=== PATIENT | female | born 1995 | race American Indian/Alaskan Native ===

== ENCOUNTER 2019-05-14 01:48 | Emergency (ER) | payer MEDICAID, OTHER ==
[2019-05-14 02:04] VITALS: BP 135/95; PULSE 98
--- NOTE | 2019-05-14 02:24 | EDM.PDOC ---
ED HPI GENERAL MEDICAL PROBLEM - General Chief Complaint: Chest Pain Stated Complaint: CHEST PAIN, VOMITTING Time Seen by Provider: 05/14/19 02:00 Source of Information: Reports: Patient History Limitations: Reports: No Limitations - History of Present Illness INITIAL COMMENTS - FREE TEXT/NARRATIVE: ED with c/o chest pain, has no cough or fever. Pain worse with movement and deep breathing. Chest Pain Score (Numeric/FACES): 7 - Related Data Allergies Allergy/AdvReac Type Severity Reaction Status Date / Time No Known Allergies Allergy Verified 05/14/19 01:57 Home Meds: Home Meds Acetaminophen [Tylenol Extra Strength] 500 mg PO Q6H PRN 08/29/13 [History] Docusate Sodium [Colace] 100 mg PO DAILY 08/29/13 [History] Past Medical History - Past Health History Medical/Surgical History: Denies Medical/Surgical History - Past Surgical History Female Surgical History: Reports: Other (See Below) Other Female Surgeries/Procedures: kidney surgery as infant Social & Family History - Tobacco Use Smoking Status *Q: Never Smoker Second Hand Smoke Exposure: No - Caffeine Use Caffeine Use: Reports: None - Recreational Drug Use Recreational Drug Use: No ED ROS GENERAL - Review of Systems Review Of Systems: Comprehensive ROS is negative, except as noted in HPI. ED EXAM, GENERAL - Physical Exam Exam: See Below Exam Limited By: No Limitations General Appearance: Alert, Anxious Eye Exam: Bilateral Eye: PERRL Nose: Normal Inspection Throat/Mouth: Normal Inspection Head: Atraumatic, Normocephalic Neck: Normal Inspection, Full Range of Motion Respiratory/Chest: No Respiratory Distress, Lungs Clear, Normal Breath Sounds. No: Chest Non-Tender (left anterior later) Cardiovascular: Normal Peripheral Pulses, Regular Rate, Rhythm GI/Abdominal: Normal Bowel Sounds Neurological: Alert, Oriented Psychiatric: Anxious Skin Exam: Warm, Dry, Intact, Normal Color Course - Vital Signs Last Recorded V/S: Last Vital Signs Temp 97.4 F 05/14/19 01:58 Pulse 98 05/14/19 01:58 Resp 16 05/14/19 01:58 BP 135/95 H 05/14/19 01:58 Pulse Ox 100 05/14/19 01:58 - Orders/Labs/Meds Labs: Laboratory Tests 05/14/19 05/14/19 05/14/19 Range/Units 01:56 01:56 01:56 WBC 8.0 (5.0-10.0) 10^3/uL RBC 4.85 (4.2-5.4) 10^6/uL Hgb 10.3 L D (12.0-16.0) g/dL Hct 33.5 L (37.0-47.0) % MCV 69.1 L D (80-100) fL MCH 21.2 L (27.0-34.0) pg MCHC 30.7 L (33.0-35.0) g/dL Plt Count 387 D (150-450) 10^3/uL Neut % (Auto) 43.6 (42.2-75.2) % Lymph % (Auto) 43.3 (20.5-50.1) % Hale % (Auto) 10.5 H (2-8) % Eos % (Auto) 2.2 (1.0-3.0) % Baso % (Auto) 0.4 (0.0-1.0) % D-Dimer, Quantitative < 100 (0-400) ng/mL Sodium 141 (136-145) mmol/L Potassium 3.3 L (3.5-5.1) mmol/L Chloride 101 (98-107) mmol/L Carbon Dioxide 30 (21-32) mmol/L Anion Gap 13.3 H (7-13) mEq/L BUN 8 (7-18) mg/dL Creatinine 0.51 L (0.55-1.02) mg/dL Est Cr Clr Drug Dosing 153.06 mL/min Estimated GFR (MDRD) > 60 BUN/Creatinine Ratio 15.7 (No establ ref range) Glucose 77 (74-99) mg/dL Calcium 8.5 (8.5-10.1) mg/dL Total Bilirubin 0.3 (0.2-1.0) mg/dL AST 13 L (15-37) U/L ALT 20 (14-59) U/L Alkaline Phosphatase 53 (46-116) U/L Total Protein 7.7 (6.4-8.2) g/dL Albumin 4.2 (3.4-5.0) g/dL Globulin 3.5 Albumin/Globulin Ratio 1.2 Amylase 54 (25-115) U/L Lipase 172 (73-393) U/L Meds: Medications Discontinued Medications Generic Name Dose Route Start Last Admin Trade Name Xander PRN Reason Stop Dose Admin Famotidine 20 mg 05/14/19 02:35 05/14/19 02:43 Pepcid IVPUSH 05/14/19 02:36 20 mg ONETIME ONE Administration Ibuprofen 600 mg 05/14/19 02:35 05/14/19 02:43 Motrin PO 05/14/19 02:36 600 mg ONETIME ONE Administration Departure - Departure Time of Disposition: 02:36 Disposition: Home, Self-Care 01 Condition: Good Clinical Impression: Costochondral chest pain - Discharge Information *PRESCRIPTION DRUG MONITORING PROGRAM REVIEWED*: No *COPY OF PRESCRIPTION DRUG MONITORING REPORT IN PATIENT ELSI: No Instructions: Costochondritis, [id number] Forms: ED Department Discharge Additional Instructions: bland diet tylenol or ibuprofen alternate every 4 hours for discomfort warm pack to chest clinic this week if symptoms worsen Sepsis Event Note - Evaluation Sepsis Screening Result: No Definite Risk - Focused Exam Date Exam was Performed: 05/16/19 Time Exam was Performed: 08:48
[2019-05-14 02:25] LABS: ANION GAP 13.3 mEq/L (7-13); CHLORIDE,CL 101 mmol/L (98-107); SODIUM,NA 141 mmol/L (136-145)
[2019-05-14] MEDS: Ibuprofen 600 MG Tab PO ONE (02:43)
[2019-05-14] MEDS: Famotidine 20 MG/2 ML SDV IVPUSH ONE (02:43)
== END 2019-05-14 02:47 | disposition home or self-care (01) ==
LOC: DL.ED 01:48
DX: R07.1 Chest pain on breathing (principal)
CPT/HCPCS: 36415; 80053; 82150; 83690; 85025; 85379; 87804; 93005; 96374; 99285; A9270; J3490; 99283

== ENCOUNTER 2020-10-09 01:12 | Emergency (ER) | payer OTHER ==
[2020-10-09 01:30] VITALS: BP 111/93; PULSE 85
--- NOTE | 2020-10-09 01:48 | EDM.PDOC ---
ED HPI GENERAL MEDICAL PROBLEM - General Stated Complaint: CONGESTION, TROUBLE BREATHING THRU NOSE, RESTLESS Time Seen by Provider: 10/09/20 01:40 Source of Information: Reports: Patient History Limitations: Reports: No Limitations - History of Present Illness INITIAL COMMENTS - FREE TEXT/NARRATIVE: This 25 yo female patient reports to the ED with nasal congestion and sinus congestion that started on Tuesday. The patient reports she started to have a sore throat yesterday. The patient was seen by Dr. Peralta in the [facility], had a negative Strep test, but did not get tested for COVID. The patient reports she is supposed to be seeing her mother tomorrow and does not want to give her COVID. The patient reports she had COVID last year and has had the Moderna Shots. The patient reports increased concerns due to not being able to smell or taste certain things. Onset Date: 10/04/20 Duration: Constant, Getting Worse Location: Reports: Head, Face Quality: Reports: Other Severity: Moderate Improves with: Reports: None Worsens with: Reports: None Context: Reports: Other Associated Symptoms: Reports: No Other Symptoms Throat Pain Score (Numeric/FACES): 6 - Related Data Allergies Allergy/AdvReac Type Severity Reaction Status Date / Time No Known Allergies Allergy Verified 10/09/20 01:30 Home Meds: Home Meds Acetaminophen [Tylenol Extra Strength] 500 mg PO Q6H PRN 08/29/13 [History] polyethylene glycoL 3350 [MiraLAX] 17 gm PO DAILY 10/09/20 [History] Past Medical History - Past Health History Medical/Surgical History: Denies Medical/Surgical History - Infectious Disease History Infectious Disease History: Reports: Novel Coronavirus - Past Surgical History Female Surgical History: Reports: Other (See Below) Other Female Surgeries/Procedures: kidney surgery as infant Social & Family History - Tobacco Use Tobacco Use Status *Q: Never Tobacco User Second Hand Smoke Exposure: No - Caffeine Use Caffeine Use: Reports: None - Recreational Drug Use Recreational Drug Use: No ED ROS ENT - Review of Systems Review Of Systems: Comprehensive ROS is negative, except as noted in HPI. ED EXAM, ENT - Physical Exam Exam: See Below Exam Limited By: No Limitations General Appearance: Alert, WD/WN, Anxious, Mild Distress Eye Exam: Bilateral Eye: EOMI, Normal Inspection, PERRL Ears: Normal External Exam, Normal Canal, Hearing Grossly Normal, Normal TMs Nose: Normal Inspection, Normal Mucousa, No Blood Mouth/Throat: Normal Inspection, Normal Gums, Normal Lips, Normal Oropharynx, Normal Teeth Head: Atraumatic, Normocephalic Neck: Normal Inspection, Supple, Non-Tender, Full Range of Motion Respiratory/Chest: No Respiratory Distress, Lungs Clear, Normal Breath Sounds, No Accessory Muscle Use, Chest Non-Tender Cardiovascular: Normal Peripheral Pulses, Regular Rate, Rhythm, No Edema, No Gallop, No JVD, No Murmur, No Rub GI/Abdominal: Normal Bowel Sounds, Soft, Non-Tender, No Organomegaly, No Distention, No Abnormal Bruit, No Mass (Female) Exam: Deferred Rectal (Female) Exam: Deferred Back: Normal Inspection, Full Range of Motion Extremities: Normal Inspection, Normal Range of Motion, Non-Tender, No Pedal Edema, Normal Capillary Refill Neurological: Alert, Oriented, CN II-XII Intact, Normal Cognition, Normal Gait, Normal Reflexes, No Motor/Sensory Deficits Psychiatric: Normal Affect, Normal Mood Skin: Warm, Dry, Intact, Normal Color, No Rash Lymphatic: No Adenopathy Course - Vital Signs Last Recorded V/S: Last Vital Signs Temp 97.7 F 10/09/20 01:25 Pulse 85 10/09/20 01:25 Resp 18 10/09/20 01:25 BP 111/93 H 10/09/20 01:25 Pulse Ox 100 10/09/20 01:25 - Orders/Labs/Meds Labs: Laboratory Tests 10/09/20 Range/Units 01:34 Influenza Type A RNA Negative (NEGATIVE) Influenza Type B RNA Negative (NEGATIVE) SARS-CoV-2 RNA (SABINO) Negative (NEGATIVE) Departure - Departure Time of Disposition: 02:34 Disposition: Home, Self-Care 01 Condition: Fair Clinical Impression: Viral URI - Discharge Information *PRESCRIPTION DRUG MONITORING PROGRAM REVIEWED*: Not Applicable *COPY OF PRESCRIPTION DRUG MONITORING REPORT IN PATIENT ELSI: Not Applicable Instructions: Viral Respiratory Infection, [id number] Forms: ED Department Discharge Care Plan Goals: The patient was advised of the examination and lab results during the visit. The patient was advised to take over the counter medications (pseudoephedrine, phenylephedrine or Afrin) for temporary symptom relief. If the patient has any additional symptoms or concerns, the patient should either return to the emergency department or visit her primary care facility. Sepsis Event Note (ED) - Focused Exam Vital Signs: Vital Signs Temp Pulse Resp BP Pulse Ox 10/09/20 01:25 97.7 F 85 18 111/93 H 100
[2020-10-09 02:19] LABS: CORONAVIRUS COVID-19 NAA NEGATIVE (NEGATIVE)
== END 2020-10-09 03:08 | disposition home or self-care (01) ==
LOC: DL.ED 01:12
DX: J06.9 Acute upper respiratory infection, unspecified (principal); Z20.822 Contact with and (suspected) exposure to COVID-19; Z86.16 Personal history of COVID-19
CPT/HCPCS: 0240U; 99282; 99283